=== PATIENT | male | born 1975 | race Caucasian/White ===

== ENCOUNTER 2021-07-06 15:32 | Emergency (ER) | payer OTHER ==
[2021-07-06] MEDS ORDERED: ONDANSETRON ODT 4 MG TAB PO STA (16:19)
[2021-07-06] MEDS ORDERED: HYDROmorphone 1 MG/ML 1 ML SYRINGE IM STA (16:19)
[2021-07-06] MEDS ORDERED: DIPH,PERTUS(ACELL)TETVAC-LF 0.5 ML VIAL IM ONE (16:19)
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
[2021-07-06] MEDS ORDERED: BACITRACIN OINT 1 EACH PACKET TOPICAL ONE (17:12)
[2021-07-06 17:57] VITALS: BP 168/118; PULSE 119; RESP 16; TEMP 97.7
== END 2021-07-06 18:15 | disposition home or self-care (01) ==
LOC: EC 15:32
DX: S90.511A Abrasion, right ankle, initial encounter (principal); S00.01XA Abrasion of scalp, initial encounter; S30.811A Abrasion of abdominal wall, initial encounter; E78.5 Hyperlipidemia, unspecified; Z23 Encounter for immunization; I10 Essential (primary) hypertension; Z87.892 Personal history of anaphylaxis; Z88.6 Allergy status to analgesic agent; Z88.2 Allergy status to sulfonamides; Z91.018 Allergy to other foods; X99.1XXA Assault by knife, initial encounter
CPT/HCPCS: 99284; 96372; 90471; 73590; 90715; J1170

== ENCOUNTER 2022-06-29 11:05 | Emergency (ER) | payer OTHER ==
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
--- NOTE | 2022-06-29 12:30 | XR ---
EXAMINATION TYPE: XR shoulder complete LT DATE OF EXAM: 06/29/2022 COMPARISON: Chest x-ray 11/07/2009 HISTORY: Pain TECHNIQUE: Shoulder examined in 3 projections. FINDINGS: The humeral head articulates with the glenoid. There is prior rotator cuff repair. The acromio-clavicular junction spacing is increased. No definite resection is identified. The acromi on does not appear depressed in relation to the distal clavicle. Correlate for separation. This is an interval change from 03/06/2009. No acute fractures or dislocations are evident. A follow up study can be performed 7-10 days from acute trauma for continued pain. MRI can be perfor med if soft tissue evaluation would be of benefit. IMPRESSION: 1. Clinical correlation with patient's surgical history and for acromial clavicular separation. 2. No acute osseous abnormality radiographically apparent.
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
[2022-06-29 13:13] VITALS: BP 145/97; PULSE 82; RESP 18; TEMP 97.8
== END 2022-06-29 13:16 | disposition home or self-care (01) ==
LOC: EC 11:05
DX: S63.502A Unspecified sprain of left wrist, initial encounter (principal); M25.512 Pain in left shoulder; E11.9 Type 2 diabetes mellitus without complications; I10 Essential (primary) hypertension; I25.2 Old myocardial infarction; Z87.891 Personal history of nicotine dependence; F12.90 Cannabis use, unspecified, uncomplicated; Z88.2 Allergy status to sulfonamides; Z91.018 Allergy to other foods; Z88.8 Allergy status to other drugs, medicaments and biological substances; X50.9XXA Other and unspecified overexertion or strenuous movements or postures, initial encounter
CPT/HCPCS: 99283

== ENCOUNTER 2022-09-21 15:11 | Emergency (ER) | payer OTHER ==
[2022-09-21 15:16] VITALS: TEMP 98.4
[2022-09-21] MEDS ORDERED: ORPHENADRINE 30 MG/ML 2 ML VIAL IM STA (15:27)
[2022-09-21] MEDS ORDERED: DEXAMETHASONE SOD PHOSPHATE 10 MG/ML 1 ML VIAL IM STA (15:27)
--- NOTE | 2022-09-21 16:00 | CT ---
EXAMINATION TYPE: CT cervical spine wo con DATE OF EXAM: 09/21/2022 COMPARISON: None HISTORY: neck pain CT DLP: 510.7 mGycm CONTRAST: None CT of the cervical spine is performed in the axial plane at 2 mm thick sections. Reconstructed image s in the coronal, and sagittal plane are reviewed on the computer. No acute fractures are evident. There is a cervical kyphosis centered at approximately C4-5. Some mild disc space narrowing is presen t C6-7 and milder at C5-6 C4-5. Vertebral body alignment is preserved. Uncovertebral joint hypertrophy is present at C4-5 with moderate bilateral foraminal stenosis. Vertebral body heights are preserved. No spinal canal stenosis is evident IMPRESSIONS: 1. Cervical kyphosis. 2. Degenerative disc changes lower cervical spine. 3. Foraminal narrowing C4-5. Correlate with radicular symptoms. Follow-up MRI can be performed as cli nically indicated. 4. No acute osseous abnormality.
--- NOTE | 2022-09-21 16:17 | ED ---
Neck Injury/Pain HPI - General Chief Complaint: Neck Pain/Injury Stated Complaint: Neck/shoulder pain, numbness Time Seen by Provider: 09/21/22 15:20 Mode of arrival: ambulatory - History of Present Illness Initial Comments: 46-year-old male presenting with chief complaint of neck pain. Patient has history of chronic neck pain. He admits to numbness and tingling in the bilateral arms. He denies any new injury or trauma. He denies any chest pain or difficulty breathing. No fevers or chills. No nausea, vomiting, dizziness, vision or hearing changes. No lower back pain, loss of bowel or bladder control, or saddle paresthesia. He states that occasionally he does get pain that shoots down his legs. He is ambulatory. Currently taking muscle relaxers and [place] at home for pain. - Related Data Previous Rx's Medication Instructions Recorded methylPREDNISolone Dose Pack 4 mg PO DIRECTED #1 packet 09/21/22 [Medrol Dose Pack] Allergies Allergy/AdvReac Type Severity Reaction Status Date / Time ketorolac [From Toradol] Allergy Unknown Verified 09/21/22 15:16 sulfamethoxazole Allergy Unknown Verified 09/21/22 15:16 [From Bactrim] tomato Allergy Unknown Verified 09/21/22 15:16 trimethoprim [From Bactrim] Allergy Unknown Verified 09/21/22 15:16 Review of Systems ROS Statement: Those systems with pertinent positive or pertinent negative responses have been documented in the HPI. ROS Other: All systems not noted in ROS Statement are negative. Past Medical History Past Medical History: Diabetes Mellitus, Hyperlipidemia, Hypertension, Myocardial Infarction ([place]) History of Any Multi-Drug Resistant Organisms: None Reported Past Surgical History: Orthopedic Surgery Additional Past Surgical History / Comment(s): knee surgery Past Psychological History: No Psychological Hx Reported Smoking Status: Former smoker Past Alcohol Use History: None Reported Past Drug Use History: Marijuana General Exam Limitations: no limitations General appearance: alert, in no apparent distress Head exam: Present: atraumatic, normocephalic, normal inspection Eye exam: Present: normal appearance, EOMI. Absent: scleral icterus, periorbital swelling Neck exam: Present: normal inspection, tenderness (No midline tenderness, paraspinal muscle tenderness), full ROM. Absent: meningismus Respiratory exam: Present: normal lung sounds bilaterally. Absent: respiratory distress, wheezes, rales, rhonchi, stridor Cardiovascular Exam: Present: regular rate, normal rhythm, normal heart sounds. Absent: systolic murmur, diastolic murmur, rubs, gallop, clicks Extremities exam: Present: normal inspection, full ROM. Absent: pedal edema Neurological exam: Present: alert, oriented X3, CN II-XII intact Psychiatric exam: Present: normal affect, normal mood Skin exam: Present: warm, dry, intact, normal color. Absent: rash Course Vital Signs 09/21/22 09/21/22 15:13 16:29 Temperature 98.4 F Pulse Rate 120 H 89 Respiratory 16 18 Rate Blood Pressure 152/108 145/97 O2 Sat by Pulse 97 100 Oximetry Medical Decision Making - Medical Decision Making Was pt. sent in by a medical professional or institution ([facility]ASSANDRA Lovett, [employer]ULT[employer], urgent care, hospital, or skilled nursing...) When possible be specific @ -No Did you speak to anyone other than the patient for history (EMS, parent, family, police, friend...)? What history was obtained from this source @ -No Did you review nursing and triage notes (agree or disagree)? Why? @ -I reviewed and agree with nursing and triage notes Were old charts reviewed (outside hosp., previous admission, EMS record, old EKG, old radiological studies, urgent care reports/EKG's, skilled nursing records)? Report findings @ -No old charts were reviewed Differential Diagnosis (chest pain, altered mental status, abdominal pain women, abdominal pain men, vaginal bleeding, weakness, fever, dyspnea, syncope, headache, dizziness, GI bleed, back pain, seizure, CVA, palpatations, mental health, musculoskeletal)? @ - MDM Differential Back Pain: Strain, zoster, cauda equina syndrome, epidural abscess, vertebral osteom yelitis, discitis, fracture, subluxation, disc herniation, DJD, spinal stenosis, dissection, AAA, pancreatitis, peptic ulcer disease, pyelonephritis, kidney stone this is not meant to be an all-inclusive list. EKG interpreted by me (3pts min.). @ -As above X-rays interpreted by me (1pt min.). @ -None done CT interpreted by me (1pt min.). @ -Cervical kyphosis. Degenerative disc changes lower cervical spine. Foraminal narrowing C4 through 5. Correlate with radicular symptoms. No acute osseous abnormality. U/S interpreted by me (1pt. min.). @ -None done What testing was considered but not performed or refused? (CT, X-rays, U/S, labs)? Why? @ -None What meds were considered but not given or refused? Why? @ -None Did you discuss the management of the patient with other professionals (professionals i.e. Dr., PA, [employer]SULTANT [employer]UC[employer], lab, RT, psych nurse, social work coordinator, winch stripper, teacher, naval gunfire liaison officer, wrapper caser)? Give summary @ -No Was smoking cessation discussed for >3mins.? @ -No Was critical care preformed (if so, how long)? @ -No Were there social determinants of health that impacted care today? How? (Homelessness, low income, unemployed, alcoholism, drug addiction, transportation, low edu. Level, literacy, decrease access to med. care, usp, rehab)? @ -No Was there de-escalation of care discussed even if they declined (Discuss DNR or withdrawal of care, Hospice)? DNR status @ -No What co-morbidities impacted this encounter? (DM, HTN, Smoking, COPD, CAD, Cancer, CVA, ARF, Chemo, Hep., AIDS, mental health diagnosis, sleep apnea, morbid obesity)? @ -None Was patient admitted / discharged? Hospital course, mention meds given and route, prescriptions, significant lab abnormalities, going to OR and other pertinent info. @ -46-year-old male presenting with chief complaint of neck pain. History of chronic neck pain, worse today with no new injury or trauma. On physical examination there is no midline tenderness, there is paraspinal muscle tenderness. Patient is given Norflex and Decadron. CT shows degenerative changes and narrowing at C4 through 5. No acute osseous abnormality. On reassessment patient reports that his pain has improved. He is instructed to follow up with orthopedics. Follow-up with PCP. Report back to ER with any new or worsening symptoms. Discussed return parameters and answered all questions. Patient conveyed verbal understanding and agreed to the plan. I discussed this case in detail with my attending Dr. Bhakta Undiagnosed new problem with uncertain prognosis? @ -No Drug Therapy requiring intensive monitoring for toxicity (Heparin, Nitro, Insulin, Cardizem)? @ -No Were any procedures done? @ -No Diagnosis/symptom? @ -Cervical radiculopathy Acute, or Chronic, or Acute on Chronic? @ -Acute Uncomplicated (without systemic symptoms) or Complicated (systemic symptoms)? @ -Uncomplicated Side effects of treatment? @ -No Exacerbation, Progression, or Severe Exacerbation? @ -No Poses a threat to life or bodily function? How? (Chest pain, [place], [place], pneumonia, PE, COPD, DKA, ARF, appy, cholecystitis, CVA, Diverticulitis, Homicidal, Suicidal, threat to staff... and all critical care pts) @ -No Disposition Clinical Impression: Cervical radiculopathy Disposition: HOME SELF-CARE Condition: Good Instructions (If sedation given, give patient instructions): Cervical Radiculopathy (ED) Additional Instructions: Follow-up with PCP and orthopedics. Report back to ER with any new or worsening symptoms. Take Motrin and Tylenol as needed for pain control. Prescriptions: methylPREDNISolone Dose Pack [Medrol Dose Pack] 4 mg PO DIRECTED #1 packet Is patient prescribed a controlled substance at d/c from ED?: No Referrals: Nonstaff,Physician [Primary Care Provider] - 1-2 days Ron Berry DO [Doctor of Osteopathic Medicine] - 1-2 days Time of Disposition: 16:17
[2022-09-21 16:30] VITALS: BP 145/97; PULSE 89; RESP 18
== END 2022-09-21 16:30 | disposition home or self-care (01) ==
LOC: EC 15:11
DX: M47.812 Spondylosis without myelopathy or radiculopathy, cervical region (principal); E11.9 Type 2 diabetes mellitus without complications; I10 Essential (primary) hypertension; I25.2 Old myocardial infarction; F12.90 Cannabis use, unspecified, uncomplicated; Z88.2 Allergy status to sulfonamides; Z91.018 Allergy to other foods; Z88.1 Allergy status to other antibiotic agents; Z88.8 Allergy status to other drugs, medicaments and biological substances; Z87.891 Personal history of nicotine dependence
CPT/HCPCS: 72125; 99283; 96372 ×2; J1100; J2360

== ENCOUNTER 2022-10-03 09:40 | Emergency (ER) | payer OTHER ==
[2022-10-03] MEDS ORDERED: HYDROmorphone 1 MG/ML 1 ML SYRINGE IM STA (10:13)
[2022-10-03] MEDS ORDERED: ONDANSETRON ODT 4 MG TAB PO STA (10:13)
--- NOTE | 2022-10-03 10:18 | ED ---
Neck Injury/Pain HPI - General Chief Complaint: Neck Pain/Injury Stated Complaint: Neck pain Time Seen by Provider: 10/03/22 09:52 Source: patient, RN notes reviewed Mode of arrival: ambulatory Limitations: no limitations - History of Present Illness Initial Comments: This is a 47-year-old male who presents to the emergency department for neck pain. Patient was evaluated here a couple of weeks ago for the same complaint. A computed tomography scan was performed showing degenerative changes and he was discharged with a Medrol Dosepak. He does take [place], gabapentin, and Flexeril at home. However, he states that over the last couple of days this has not been adequately managing his pain. He has an MRI scheduled for 3 days from now. Denies any injuries, states that the pain is getting worse and he is now nauseous. Denies any fevers, chills, sore throat, cough, dyspnea, chest pain, palpitations, abdominal pain, vomiting, diarrhea, or headaches. MD Complaint: neck pain - Related Data Previous Rx's Medication Instructions Recorded methylPREDNISolone Dose Pack 4 mg PO DIRECTED #1 packet 09/21/22 [Medrol Dose Pack] Ondansetron Odt [Zofran Odt] 4 mg PO Q8HR PRN #20 tab 10/03/22 methocarbamoL [Robaxin-750] 1,500 mg PO QID PRN #30 tab 10/03/22 predniSONE 50 mg PO DAILY 5 Days #5 tab 10/03/22 Allergies Allergy/AdvReac Type Severity Reaction Status Date / Time ketorolac [From Toradol] Allergy Unknown Verified 10/03/22 09:42 sulfamethoxazole Allergy Unknown Verified 10/03/22 09:42 [From Bactrim] tomato Allergy Unknown Verified 10/03/22 09:42 trimethoprim [From Bactrim] Allergy Unknown Verified 10/03/22 09:42 Review of Systems ROS Statement: Those systems with pertinent positive or pertinent negative responses have been documented in the HPI. ROS Other: All systems not noted in ROS Statement are negative. Past Medical History Past Medical History: Diabetes Mellitus, Hyperlipidemia, Hypertension, Myocardial Infarction ([place]) History of Any Multi-Drug Resistant Organisms: None Reported Past Surgical History: Appendectomy, Cholecystectomy, Orthopedic Surgery Additional Past Surgical History / Comment(s): knee surgery, shoulder left X2, cyst removals X3, vastectomy Past Psychological History: No Psychological Hx Reported Smoking Status: Former smoker Past Alcohol Use History: None Reported Past Drug Use History: Marijuana General Exam Limitations: no limitations General appearance: alert, in no apparent distress Head exam: Present: atraumatic, normocephalic, normal inspection Respiratory exam: Present: normal lung sounds bilaterally. Absent: respiratory distress, wheezes, rales, rhonchi, stridor Cardiovascular Exam: Present: regular rate, normal rhythm, normal heart sounds. Absent: systolic murmur, diastolic murmur, rubs, gallop, clicks Neurological exam: Present: alert, oriented X3, CN II-XII intact Psychiatric exam: Present: normal affect, normal mood Skin exam: Present: warm, dry, intact, normal color. Absent: rash Course Vital Signs 10/03/22 10/03/22 10/03/22 09:42 11:25 11:27 Temperature 97.0 F L 98.1 F Pulse Rate 127 H 105 H Respiratory 20 18 Rate Blood Pressure 154/122 145/120 145/120 O2 Sat by Pulse 99 99 Oximetry Medical Decision Making - Medical Decision Making This is a 47-year-old male who presents to the emergency department for neck pain. Was pt. sent in by a medical professional or institution? @ -No Did you speak to anyone other than the patient for history? @ -No Did you review nursing and triage notes? @ -Yes, and I agree, it is accurate with regards to the patient's symptoms. Were old charts reviewed? @ -No Differential Diagnosis? @ -Differential Neck Pain: Fracture, dislocation, contusion, strain, DDD, disc herniation, this is not meant to be an all-inclusive list. EKG interpreted by me (3pts min.)? @ -Not obtained X-rays interpreted by me (1pt min.)? @ -Not obtained CT interpreted by me (1pt min.)? @ -Not obtained U/S interpreted by me (1pt. min.)? @ -Not obtained What testing was considered but not performed? (CT, X-rays, U/S, labs)? Why? @ -None What meds were considered but not given? Why? @ -None Did you discuss the management of the patient with other professionals? @ -No Did you reconcile home meds? @ -No Was smoking cessation discussed for >3mins.? @ -No Was critical care preformed (if so, how long)? @ -No Were there social determinants of health that impacted care today? How? ( Homelessness, low income, unemployed, alcoholism, drug addiction, transportation, low edu. Level, literacy, decrease access to med. care, usp, rehab)? @ -No Was there de-escalation of care discussed even if they declined? (Discuss DNR or withdrawal of care, Hospice)? @ -No What co-morbidities impacted this encounter? (DM, HTN, Smoking, COPD, CAD, Cancer, CVA, Hep., AIDS, mental health diagnosis, sleep apnea, morbid obesity)? @ -None Was patient admitted / discharged? @ -Discharged. Pain and nausea were well controlled in the emergency department. Given that the patient has had relief with steroids in the past, we will put him on a five-day course of prednisone. Prescription for prednisone was provided with dosing instructions reviewed. He was also given a prescription for Robaxin, he is advised to see if this is more effective than the Flexeril, however he is advised to avoid taking them together. Prescription for Zofran was also provided for management of the nausea. He will otherwise continue with his other medications and follow-up with his primary care provider. Undiagnosed new problem with uncertain prognosis? @ -None Drug Therapy requiring intensive monitoring for toxicity (Heparin, Nitro, Insulin, Cardizem)? @ -None Were any procedures done? @ -None Diagnosis/symptom? @ -Neck pain Acute, or Chronic, or Acute on Chronic? @ -Chronic Uncomplicated (without systemic symptoms) or Complicated (systemic symptoms)? @ -Uncomplicated Side effects of treatment? @ -None Exacerbation, Progression, or Severe Exacerbation] @ -Exacerbation Poses a threat to life or bodily function? @ -The pain is making it difficult for him to sleep and function. Return precautions reviewed in depth, the patient is instructed to return to the emergency department with any new, worsening, or concerning symptoms. Patient verbalized understanding. This case was discussed in detail with the attending ED physician, Dr. Novoa. Presentation, findings, and treatment plan discussed in detail as well. Disposition Clinical Impression: Neck pain Disposition: HOME SELF-CARE Instructions (If sedation given, give patient instructions): Neck Pain (ED) Additional Instructions: Return to the emergency department with any new, worsening, or concerning symptoms. Take the prednisone daily for 5 days. You can try taking the Robaxin in place of the Flexeril to see if it is more effective, however do not take them together. You can take the Zofran up to every 8 hours as needed for nausea and vomiting. Follow up with your primary care provider in 1-2 days. Prescriptions: predniSONE 50 mg PO DAILY 5 Days #5 tab methocarbamoL [Robaxin-750] 1,500 mg PO QID PRN #30 tab PRN Reason: Pain Ondansetron Odt [Zofran Odt] 4 mg PO Q8HR PRN #20 tab PRN Reason: Nausea And Vomiting Is patient prescribed a controlled substance at d/c from ED?: No Referrals: Nonstaff,Physician [Primary Care Provider] - 1-2 days
[2022-10-03] MEDS ORDERED: DEXAMETHASONE SOD PHOSPHATE 10 MG/ML 1 ML VIAL IM STA (11:03)
[2022-10-03 11:29] VITALS: BP 145/120; PULSE 105; RESP 18; TEMP 98.1
== END 2022-10-03 11:31 | disposition home or self-care (01) ==
LOC: EC 09:40
DX: M54.2 Cervicalgia (principal); E11.9 Type 2 diabetes mellitus without complications; I10 Essential (primary) hypertension; Z87.891 Personal history of nicotine dependence; F12.90 Cannabis use, unspecified, uncomplicated; Z88.2 Allergy status to sulfonamides; Z88.8 Allergy status to other drugs, medicaments and biological substances; Z91.018 Allergy to other foods
CPT/HCPCS: 99283; 96372 ×2; J1100; J1170